=== PATIENT | male | born 1965 | race Caucasian/White ===

== ENCOUNTER 2017-04-07 09:55 | Inpatient (IN) ==
--- NOTE | 2017-04-07 10:51 | Diag Imaging Result Doc PS360 ---
EXAM: XRAY PELVIS W/HIP 2-3VW RT HISTORY: fsll TECHNIQUE: Three views COMPARISON: None. FINDINGS: There is a fracture to the right femoral neck. Femoral head remains in the acetabulum. There is only slight displacement and angulation at the fracture site. No other fracture to the pelvis. IMPRESSION: Right femoral neck fracture. Electronically signed by Celso Daly 04/07/2017 10:49 AM
--- NOTE | 2017-04-07 10:53 | Diag Imaging Result Doc PS360 ---
EXAM: CHEST-1 VIEW HISTORY: HIP FX TECHNIQUE: Semiupright AP COMPARISON: 03/14/2017 FINDINGS: The lungs are well expanded. The heart is not enlarged. The vessels are not distended. There are no infiltrates. No effusion identified. IMPRESSION: Negative exam.. Electronically signed by Celso Daly 04/07/2017 10:50 AM
--- NOTE | 2017-04-07 10:55 | PROVIDER DOCUMENTATION ---
HPI-Musculoskeletal Pain/Inj - GENERAL Chief Complaint: Fall Stated Complaint: FALL, RT HIP PAIN Time Seen by Provider: 04/07/17 10:17 Source: patient - HX OF PRESENT ILLNESS-MUSKULOSKELTAL Nature of Presenting Problem: 52 YO WM presents wtih right hip pain after falling after standing up from a rocking chair today. Brought in by EMS. States doesn't know why he fell, but having some difficulty with low blood pressure lately and was recently placed on new medication by his psychiatric doctor. Feels fine other than his right hip hurting. No LOC, no nausea/vomiting, no pain anywhere else, did not hit his head. Quality of Pain: reports: aching, throbbing Severity in ED: moderate Onset/Duration: just prior to arrival Timing: still present Modifying Factors: improves with: nothing Any recent injury?: Yes Locality of Occurance: Home Similar Symptoms Previously?: No Recently seen or treated by another doctor?: Yes - FALL INJURY Location of Pain/Injury: reports: pelvis, lower extremity Pain Radiation: reports: no radiation Reason for Fall: reports: lightheaded Symptoms prior to fall:: reports: none Loss of Consciousness: no loss of consciousness Injury Associated Symptoms: reports: joint pain, unable to bear weight, trouble walking. denies: arm pain, back/neck pain, chest pain, diaphoresis, dizziness, headaches, muscle aches, nausea, shortness of breath, snap/crack/pop sensation, vomiting - HIP/PELVIS PAIN/INJURY Hip Pain Location: reports: hip (R) Pain Radiation: reports: no radiation Context / Method of Injury: reports: fall Associated Symptoms: denies: loss of bladder control, loss of bowel control, lower back pain, numbness in legs/feet, tingling in legs/feet, weakness in legs/ feet Review of Systems - Adult - REVIEW OF SYSTEMS - ADULT Constitutional: denies: chills, fever Eyes: denies: decreased vision, blurred vision, double vision Ears, Nose, Mouth & Throat: reports: no symptoms reported Cardiovascular: denies: chest pain, palpitations, syncope Respiratory: denies: cough, shortness of breath, wheezing Gastrointestinal: denies: abdominal pain, diarrhea, nausea, vomiting Genitourinary: reports: no symptoms reported Musculoskeletal: reports: bone pain, joint pain. denies: back pain, joint swelling, muscle aches, muscle weakness, neck pain Integumentary: reports: no symptoms reported Neurological: reports: no symptoms reported Past History - Adult - PAST MEDICAL HISTORY-ADULT Review of Records: reports: Nursing Assessment Review, Medications Reviewed Major Childhood Illnesses: reports: denies history Cardiovascular: reports: denies history Respiratory: reports: denies history Gastrointestinal: reports: denies history Obstetrical/Gynecological: reports: denies history Genitourinary: reports: denies history Musculoskeletal: reports: denies history Neurological: reports: denies history Psychiatric: reports: anxiety, depression, psychiatric problems, suicide attempt , schizophrenia Endocrine/Immune: reports: denies history Other Conditions: reports: denies history - PRIOR SURGERIES/PROCEDURES Surgical/Procedure History: reports: other (facial surgery) - IMMUNIZATION STATUS Childhood Immunizations: See Nurse Assessment Flu Vaccine: See Nurse Assessment - FAMILY HISTORY Family History: reviewed, not pertinent Physical Exam-Injury Related - Physical Exam-Injury Related Initial Vital Signs Reviewed: Yes General Appearance: appears well, alert, no apparent distress Eyes: PERRL/EOMI, pink conjunctivae. negative: sclera injected, scleral icterus Head, Ears, Nose, Mouth & Throat: normocephalic/atraumatic, moist mucous membranes Neck: full range of motion, supple, normal inspection Respiratory: lungs clear, normal breath sounds, no respiratory distress, no accessory muscle use. negative: crackles, rales, rhonchi, stridor, wheezing Cardiovascular: normal peripheral pulses, regular rate, rhythm Peripheral Pulses: radial (R): 2+, radial (L): 2+, dorsalis-pedis (R): 2+, dorsalis-pedis (L): 2+ Abdominal Exam: non tender, soft. negative: distended, guarding, rigid, rebound , tenderness Extremity: other (right leg extended with toe pointed toward ceiling, left knee flexed. Right leg does not appear shorter than the left. Pain at the right anterior pelvis/hip. No ecchymosis noted). negative: erythema, inflammation, joint effusion Integumentary: normal color, warm/dry Neurologic: consumer marketing manager II-XII nml as tested, grossly normal Psych/Mental Status: normal mood/affect, normal thought content, normal thought process Progress - PLAN OF CARE/RESULTS Progress/Plan/Lab Results: Laboratory Results - last 24 hr 04/07/17 04/07/17 04/07/17 11:07 11:07 11:07 WBC RBC Hgb Hct MCV MCH MCHC RDW Std Deviation Plt Count MPV Immature Gran % (Auto) Neut % (Auto) Lymph % (Auto) [place] % (Auto) Eos % (Auto) Baso % (Auto) Immature Gran # (Auto) Neut # (Auto) Lymph # (Auto) [place] # (Auto) Eos # (Auto) Baso # (Auto) PTT (Actin FS) 23.1 Sodium Potassium Chloride Carbon Dioxide Anion Gap BUN Creatinine Estimated GFR/1.73 m2 BUN/Creatinine Ratio Glucose Calculated Osmolality Calcium Total Bilirubin AST ALT Alkaline Phosphatase Creatine Kinase 71 Troponin T < 0.010 Total Protein Albumin Globulin Albumin/Globulin Ratio Urine Source Urine Color Urine Turbidity Urine pH Ur Specific [place] Urine Protein Ur Glucose (Stick) Ur Ketones (Stick) Urine Blood Urine Nitrite Urine Bilirubin Urobilinogen Dipstick Urine Leukocytes Urine WBC (Auto) Urine RBC (Auto) U Epithel Cells (Auto) Urine Bacteria (Auto) [place] Blood Type Antibody Screen 04/07/17 04/07/17 04/07/17 11:07 11:07 11:07 WBC 5.45 RBC 3.87 L Hgb 12.8 L Hct 37.8 L MCV 97.7 MCH 33.1 H MCHC 33.9 RDW Std Deviation 14.1 Plt Count 176 MPV 11.9 H Immature Gran % (Auto) 0.0 Neut % (Auto) 74.0 Lymph % (Auto) 14.7 L [place] % (Auto) 10.5 H Eos % (Auto) 0.2 Baso % (Auto) 0.6 Immature Gran # (Auto) 0.00 Neut # (Auto) 4.04 Lymph # (Auto) 0.80 L [place] # (Auto) 0.57 Eos # (Auto) 0.01 Baso # (Auto) 0.03 PTT (Actin FS) Sodium 138 Potassium 4.4 Chloride 100 Carbon Dioxide 25 Anion Gap 13 BUN 9 Creatinine 0.9 Estimated GFR/1.73 m2 > 60 BUN/Creatinine Ratio 10 Glucose 102 Calculated Osmolality 275 Calcium 8.9 Total Bilirubin 0.62 AST 19 ALT 15 Alkaline Phosphatase 55 Creatine Kinase Troponin T Total Protein 6.0 L Albumin 3.9 Globulin 2.1 Albumin/Globulin Ratio 1.9 Urine Source Urine Color Urine Turbidity Urine pH Ur Specific [place] Urine Protein Ur Glucose (Stick) Ur Ketones (Stick) Urine Blood Urine Nitrite Urine Bilirubin Urobilinogen Dipstick Urine Leukocytes Urine WBC (Auto) Urine RBC (Auto) U Epithel Cells (Auto) Urine Bacteria (Auto) [place] Blood Type A NEGATIVE Antibody Screen NEGATIVE 04/07/17 04/07/17 11:07 11:44 WBC RBC Hgb Hct MCV MCH MCHC RDW Std Deviation Plt Count MPV Immature Gran % (Auto) Neut % (Auto) Lymph % (Auto) [place] % (Auto) Eos % (Auto) Baso % (Auto) Immature Gran # (Auto) Neut # (Auto) Lymph # (Auto) [place] # (Auto) Eos # (Auto) Baso # (Auto) PTT (Actin FS) Sodium Potassium Chloride Carbon Dioxide Anion Gap BUN Creatinine Estimated GFR/1.73 m2 BUN/Creatinine Ratio Glucose Calculated Osmolality Calcium Total Bilirubin AST ALT Alkaline Phosphatase Creatine Kinase Troponin T Total Protein Albumin Globulin Albumin/Globulin Ratio Urine Source CLEAN CATCH Urine Color YELLOW Urine Turbidity CLEAR Urine pH 7.0 Ur Specific [place] 1.012 Urine Protein NEGATIVE Ur Glucose (Stick) NEGATIVE Ur Ketones (Stick) NEGATIVE Urine Blood NEGATIVE Urine Nitrite NEGATIVE Urine Bilirubin NEGATIVE Urobilinogen Dipstick NORMAL Urine Leukocytes NEGATIVE Urine WBC (Auto) <10 Urine RBC (Auto) <10 U Epithel Cells (Auto) <10 Urine Bacteria (Auto) NEGATIVE [place] 0.50 L Blood Type Antibody Screen Orders Category Date Time Status Admit - [facility] Routine AdmDCTranf 04/07/17 13:38 Ordered Admit [facility] Routine AdmDCTranf 04/07/17 16:21 Ordered Activity - Up with Assistance ORDERED Care 04/07/17 16:21 Active Intake and Output-Strict ORDERED Care 04/07/17 16:21 Active Nursing- MD Consult Request ROUTINE Care 04/07/17 16:21 Active Saline Loc NOW Care 04/07/17 11:00 Completed Vital Signs Order Q 8-HR ASSESS Care 04/07/17 16:21 Active Z-Document. for Tele Applied ORDERED Care 04/07/17 16:21 Completed Physician/Provider Consults Routine Cons 04/07/17 16:21 Ordered Regular Diet Diet 04/07/17 14:41 Active CHEST-1 VIEW [RAD] Stat Exams 04/07/17 10:38 Completed XRAY PELVIS W/HIP 2-3VW RT [RAD] Stat Exams 04/07/17 10:18 Completed CBC WITH DIFF [HEME] Stat Lab 04/07/17 11:07 Completed CK PROFILE [SP CHEM] Stat Lab 04/07/17 11:07 Completed COMPREHENSIVE METABOLIC PANEL [CHEM] Stat Lab 04/07/17 11:07 Completed LITHIUM [TDM] Stat Lab 04/07/17 11:07 Completed PTT [COAG] Stat Lab 04/07/17 11:07 Completed TROPONIN T Stat Lab 04/07/17 11:07 Completed TYPE & SCREEN [BBK] Stat Lab 04/07/17 11:07 Completed UA NIMS W/REFLEX CULT [URINALYSIS] Stat Lab 04/07/17 11:44 Completed 0.9% Sodium Chloride Inj [Ns] 1,000 ml Med 04/07/17 16:21 Active IV 65 mls/hr ATORVAstatin [Lipitor] Med 04/07/17 21:00 Active 10 mg PO QHS Acetaminophen [Tylenol] Med 04/07/17 16:21 Active 650 mg PO Q6H PRN PRN Benztropine [Cogentin] Med 04/07/17 17:00 Active 2 mg PO TID Clozapine [Clozaril] Med 04/08/17 09:00 Active 100 mg PO DAILY Divalproex [Depakote] Med 04/07/17 21:00 Active 500 mg PO QHS Fludrocortisone [Florinef] Med 04/08/17 09:00 Active 0.1 mg PO DAILY Hydromorphone [Dilaudid] Med 04/07/17 16:21 Active 1 mg IV Q3H PRN PRN [place] Carbonate Med 04/07/17 21:00 Active 300 mg PO BID Loxapine [Loxitane] Med 04/08/17 09:00 Active 10 mg PO DAILY Mirtazapine [Remeron] Med 04/08/17 09:00 Active 15 mg PO DAILY Morphine Med 04/07/17 12:22 Discontinued 4 mg .ROUTE .STK-MED ONE Morphine Med 04/07/17 11:34 Discontinued 4 mg IV NOW ONE Ondansetron [Zofran] Med 04/07/17 11:34 Discontinued 4 mg IV NOW ONE Ondansetron [Zofran] Med 04/07/17 16:21 Active 4 mg IV Q4H PRN PRN Pseudoephedrine [Sudafed] Med 04/07/17 21:00 Active 30 mg PO BID Pseudoephedrine [Sudafed] Med 04/08/17 09:00 Discontinued 30 mg PO DAILY Sertraline [Zoloft] Med 04/08/17 09:00 Active 100 mg PO DAILY Oxygen Device Routine Oth 04/07/17 16:21 Active Telemetry [OM.EQ] Routine Oth 04/07/17 16:21 Active EKG [EKG] Routine Ther 04/08/17 08:00 Ordered EKG [EKG] Stat Ther 04/07/17 10:36 Draft Physical Therapy Eval/Treatment [OM.PT] Routine Ther 04/07/17 16:21 Active Transfer/Admit Order [TRANSFER] Routine Transfer 04/07/17 14:37 Completed Result Diagrams: 04/07/17 11:07 04/07/17 11:07 - REASSESSMENT Reassessment #1 Time Reassessed: 11:02 (Waiting on further labs, but discussed with Dr. Marshall. Pt needs admission for femoral neck fracture. Pt had possible near-syncope/ hypotension. Will call orthopedics and hospitalist when labs are back. ) Reassessment #2 Time Reassessed: 12:24 (Labs back. Ortho called. ) Reassessment #3 Time Reassessed: 12:40 (Discussed with Dr. Marshall. She will go in and see the patient. Informed pt of admission, and that orthopedist will be seeing him when he gets admitted. ) Reassessment #4 Time Reassessed: 13:30 (Dr. Marshall evaluated pt. Agrees with admission. ) - XRAY 1 XRAY: Right XRAY Study: Pelvis, Hip Impression: Abnormal (Right femoral neck fracture) - CONSULTS/PCP/HOSPITALIST Notification #1 *Consult/PCP/Hospitalist*: Dr. Roca, Orthopedics Time Discussed: 12:25 (Admit to hospitalist, will consult on pt) Consult Disposition: Admit #2 Consult: Shayy SHREDDING MACHINE OPERATOR for Dr. Chavez Time Discussed: 12:31 (Will admit and consult to orthopedics) #3 Consult: Dr. Calloway, admitting provider for Dr. Varela Time Discussed: 14:13 (Re[address] head CT for pt, will admit for Dr. Roca to evaluate for hip fracture) Consult Disposition: Admit Departure - Departure Date of Disposition Decision: 04/07/17 Time of Disposition Decision: 12:31 DIAGNOSIS: Femoral neck fracture Qualifiers: Encounter type: initial encounter Fracture type: closed Laterality: right Qualified Code(s): S72.001A - Fracture of unspecified part of neck of right femur, initial encounter for closed fracture Fall Qualifiers: Encounter type: initial encounter Qualified Code(s): W19.XXXA - Unspecified fall, initial encounter Disposition: ADMITTED INPATIENT 09 Certified Medical Emergency: Emergent Condition: Stable - Critical Care Note This patient required my direct & personal management of CC.: No Attestation - Physician/ TANIA Attestation Patient care was provided by Advanced Practice Provider:: Yes Advanced Practice Provider:: Roscoe Velasquez Advanced Practice Provider documentation review:: The Mid-level provider documentation, treatment plan and medical decision making was reviewed by the physician who agrees with all treatment and medical decision making by the MLP. The physician spent face to face time with patient:: No Advanced Practice Provider documentation review:: Supervising physician onsite and consulted in the evaluation and care of this patient. The physician did not have a face to face encounter with the patient.
[2017-04-07 11:16] LABS: MANUAL DIFF NEEDED? NO
[2017-04-07 11:24] LABS: BASO% 0.6 % (0.0-0.8); EOS# 0.01 X1000 (0.0-0.7); EOS% 0.2 % (0.0-10.0); HEMATOCRIT 37.8 % (42.0-52.0); HEMOGLOBIN 12.8 g/dL (14.0-18.0); LYMPH% 14.7 % (20.5-51.1); MCH 33.1 PG (27-31); MCHC 33.9 g/dL (33-37); MCV 97.7 FL (81-99); MONO# 0.57 X1000 (0.11-0.59); MONO% 10.5 % (1.7-9.3); MPV 11.9 FL (7.4-10.4); PLT 176 X1000 (130-400); RBC 3.87 XMIL (4.7-6.1)
[2017-04-07] MEDS ORDERED: ZOFRAN IV ONE (11:34)
[2017-04-07] MEDS ORDERED: MORPHINE IV ONE (11:34)
[2017-04-07 11:46] LABS: AGAP 13; ALBUMIN 3.9 g/dL (3.5-5.0); ALKALINE PHOSPHATASE 55 U/L (32-122); BUN 9 mg/dL (8-22); CALCIUM 8.9 mg/dL (8.8-10.2); CHLORIDE 100 mmol/L (98-107); COSMO 275; GOT 19 U/L (10-34); GPT 15 U/L (10-44); POTASSIUM 4.4 mmol/L (3.5-5.1); SODIUM 138 mmol/L (136-145); TCO2 25 mmol/L (25-35); TOTAL BILIRUBIN 0.62 mg/dL (0.20-1.00)
[2017-04-07 11:57] LABS: URINE CULTURE NEEDED? NO; URINE MICRO REVIEW NEEDED? NO; URINE SOURCE CLEAN CATCH
[2017-04-07 12:14] LABS: BILIRUBIN URINE NEGATIVE (NEGATIVE); BLOOD URINE NEGATIVE (NEGATIVE); COLOR YELLOW; GLUCOSE URINE NEGATIVE (NEGATIVE); LEUKOCYTES URINE NEGATIVE (NEGATIVE); NITRITE URINE NEGATIVE (NEGATIVE); PROTEIN URINE NEGATIVE (NEGATIVE); SP GRAVITY URINE 1.012; TURBIDITY URINE CLEAR (CLEAR); UROBILINOGEN URINE NORMAL (NORMAL)
[2017-04-07 12:16] LABS: UR EPITHELIAL CELLS <10 /HPF (<10); URINE BACTERIA NEGATIVE /HPF; URINE RBC <10 /HPF (<10); URINE WBC <10 /HPF (<10)
[2017-04-07] MEDS ORDERED: MORPHINE ONE (12:22)
--- NOTE | 2017-04-07 12:45 | EKG Report ---
Test Performed on : 04/07/2017 12:31:51 PM Test Reason : CP Blood Pressure : / mmHG Vent. Rate : 061 BPM Atrial Rate : 061 BPM P-R Int : 148 ms QRS Dur : 088 ms QT Int : 448 ms P-R-T Axes : 031 026 062 degrees QTc Int : 450 ms Normal sinus rhythm. Normal ECG When compared with ECG of 14-MAR-2017 11:41, Vent. rate has decreased BY 31 BPM Nonspecific T wave abnormality no longer evident in Inferior leads Unconfirmed Result
--- NOTE | 2017-04-07 13:40 | ED EKG INTERP ---
This chart was entered by Soledad Isaac Scribe, acting as scribe for Jim Marshall MD. EKG Interpretation - EKG Time of EKG reading by physician:: 12:31 EKG Read and Signed by:: Jim Marshall EKG Interpretation (*Must complete 3 of following elements*): Normal Rate: 61 Rhythm: NSR [place]: normal Attestation - Physician/ TANIA Attestation Patient care was provided by Advanced Practice Provider:: No The physician spent face to face time with patient:: Yes Advanced Practice Provider documentation review:: Supervising physician onsite and consulted in the evaluation and care of this patient. The physician did have a face to face encounter with the patient. This chart was documented by the indicated scribe, (Soledad Isaac Scribe) and accurately reflects the services I performed and decisions made by me, Jim Marshall MD, as attested by the provider's signature.
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
[2017-04-07] MEDS ORDERED: ZOFRAN IV PRN (16:21)
[2017-04-07] MEDS ORDERED: TYLENOL PO PRN (16:21)
[2017-04-07] MEDS: DILAUDID IV PRN (16:42)
[2017-04-07] MEDS ORDERED: KEFZOL 1 GM/D5W 1 GM/50 ML IVPB IV ONE (17:19)
[2017-04-07] MEDS: NS 1,000 ML IV SCH (17:30)
[2017-04-07] MEDS: COGENTIN PO SCH (17:35)
--- NOTE | 2017-04-07 18:52 | CONSULTATION ---
DATE OF CONSULTATION: 04/07/2017 PICCOLO MECHANIC: Roland Chavez MD PRIMARY CARE PHYSICIAN: Charlotte Varela MD. HISTORY OF PRESENT ILLNESS: I have been asked to see this very pleasant, 52-year-old male, after he had sustained a fall at the facility he stays at, this morning. He states he got up too quickly out of his recliner. He fell directly and landed on the right hip. He states he has not had any pain in the hip prior to this incident. He states currently his pain is controlled. I examined him in bed 454A. Currently, he denies any chest pain, shortness of breath. No other complaints. PAST MEDICAL HISTORY: Includes psychiatric disorders with bipolar. PAST SURGICAL HISTORY: Plastic surgery to the nose. ALLERGIES: No known drug allergies. MEDICATIONS: Please see list. FAMILY HISTORY: Questionable depression in his family. No cardiovascular disease. SOCIAL HISTORY: Denies any alcohol, tobacco, or illicit drugs. REVIEW OF SYSTEMS: Fourteen-point review of systems negative unless stated otherwise above. PHYSICAL EXAMINATION: General: He is currently alert and oriented x3. He is in no apparent distress. Vital Signs: Temperature 98.5, pulse 68, respirations 18, blood pressure 113/68, O2 saturation 97% on room air. HEENT: His head is normocephalic, atraumatic. Eyes, pupils equal, round, react to light and accommodation. Extraocular muscles intact bilaterally. Ears: No otalgia or otorrhea. Throat is not injected. Neck: Supple. Trachea is midline. Cardiovascular: Regular rate and rhythm. Respiratory: No distress noted. Chest rise equal bilaterally. Abdomen: Soft, nontender. Musculoskeletal: He has got a positive short and externally rotated right lower extremity. He has got pain with internal-external rotation with positive log roll. His compartments are soft. Skin: Warm, dry, intact. X-RAYS: Three views of the right hip demonstrate a displaced femoral neck fracture on the right. IMPRESSION: 1. Right displaced femoral neck fracture. 2. Bipolar disorder. PLAN: Today, I discussed the patient's length regarding his hip fracture. I recommended operative fixation for the right hip. I discussed with him a right hip hemiarthroplasty. I went over the risks, benefits, complications, indications associated with surgical procedure. I went over the risk of infection, DVT pulmonary embolism, neurovascular injury, risks of continued pain, need for further surgery and complications that do arise. He agrees and wished to proceed. We will get him scheduled in the a.m. for operative fixation. We will keep him n.p.o. after midnight. I will obtain a surgical permit. I will continue to follow him throughout his hospital stay as well. Thank you for allowing me to participate in the care of this patient. cc: DO Romeo Munroe MD Allen J. Schmidt, MD
[2017-04-07] MEDS: LITHIUM CARBONATE PO SCH (19:59)
[2017-04-07] MEDS: LIPITOR PO SCH (19:59)
[2017-04-07] MEDS: DEPAKOTE PO SCH (19:59)
[2017-04-07] MEDS: SUDAFED PO SCH (20:00)
[2017-04-08] MEDS: DILAUDID IV PRN (01:51)
[2017-04-08] MEDS ORDERED: NEOSPORIN G.U. IRRIGANT ONE ×2 (07:14→09:10)
[2017-04-08] MEDS ORDERED: KEFZOL 1 GM/D5W 1 GM/50 ML IVPB ONE (07:53)
[2017-04-08] MEDS ORDERED: XYLOCAINE-MPF 2% ONE (08:22)
[2017-04-08] MEDS ORDERED: DIPRIVAN 1% ONE (08:23)
[2017-04-08] MEDS ORDERED: VERSED ONE (08:23)
[2017-04-08] MEDS ORDERED: FENTANYL ONE (08:23)
[2017-04-08] MEDS ORDERED: ZOFRAN ONE (08:54)
[2017-04-08] MEDS ORDERED: DECADRON ONE (08:54)
[2017-04-08] MEDS ORDERED: SUDAFED PO SCH (09:00)
[2017-04-08] MEDS ORDERED: OFIRMEV 1000 MG/ISOTONIC SOLN 1,000 MG/100 ML BOTTLE ONE (09:33)
[2017-04-08] MEDS: DILAUDID ONE ×3 (10:23→12:56)
--- NOTE | 2017-04-08 10:42 | Diag Imaging Result Doc PS360 ---
EXAM: XRAY HIP UNILATERAL RT HISTORY: Post hip TECHNIQUE: Right hip two views portable at 1025 COMMENT: There is a bipolar prosthesis. There appears to be satisfactory alignment. IMPRESSION: Postsurgical changes. Electronically signed by Leonides Monge 04/08/2017 10:40 AM
[2017-04-08] MEDS ORDERED: HALDOL IV PRN (11:02)
[2017-04-08] MEDS ORDERED: MILK OF MAGNESIA PO PRN (11:02)
[2017-04-08] MEDS ORDERED: ZOFRAN IV PRN (11:02)
[2017-04-08] MEDS: CLOZARIL PO SCH (12:24)
[2017-04-08] MEDS: TYLENOL PO SCH ×2 (12:25→20:27)
[2017-04-08] MEDS: COGENTIN PO SCH ×3 (12:25→19:03)
[2017-04-08] MEDS: LOXITANE PO SCH (12:26)
[2017-04-08] MEDS: FLORINEF PO SCH (12:27)
[2017-04-08] MEDS: LITHIUM CARBONATE PO SCH ×2 (12:27→20:27)
[2017-04-08] MEDS: ZOLOFT PO SCH (12:27)
[2017-04-08] MEDS: REMERON PO SCH (12:27)
[2017-04-08] MEDS: SUDAFED PO SCH ×2 (12:28→20:28)
[2017-04-08] MEDS: NS 1,000 ML IV SCH (12:56)
[2017-04-08] MEDS: KEFZOL 1 GM/D5W 1 GM/50 ML IVPB IV SCH ×2 (15:00→23:19)
[2017-04-08] MEDS: OXY IR PO PRN ×2 (15:00→18:56)
--- NOTE | 2017-04-08 15:19 | OPERATIVE NOTE ---
PROCEDURE DATE: 04/08/2017 PREOPERATIVE DIAGNOSIS: Displaced right femoral neck fracture. POSTOP DIAGNOSIS: Displaced right femoral neck fracture. PROCEDURE: Right hip hemiarthroplasty bipolar. SURGEON: Victoriano Roca D.O. CLAY PIGEON SETTER: None. ANESTHESIA: General endotracheal. ESTIMATED BLOOD LOSS: 100 mL. FLUIDS: Per anesthesia. DRAINS: None. ANTIBIOTICS: 1 g Ancef IV preop. SPECIMEN TISSUES REMOVED: None. COMPLICATIONS: None . IMPLANTS: 1. DePuy femoral head 28 mm +8.5, 07/06 taper. 2. DePuy Tri Lock femoral stem size 7 high offset. 3. DePuy self-centering bipolar head 28 mm inner diameter, 53 mm outer diameter. DISPOSITION: Stable recovery room. INDICATIONS FOR PROCEDURE: This very pleasant 52-year-old male was seen and evaluated yesterday after he had been transported to the emergency department from the care facility he stays at secondary to him getting up too quickly from a chair falling. He was examined and found to have a displaced right femoral neck fracture. I discussed with him operative fixation of the right hip with hemiarthroplasty. I went over the risks, benefits, complications, indications associated with surgical procedure and he agrees and wished to proceed. Written consent has been signed and placed in the chart. Right lower extremity has been marked in preoperative area. DETAIL PROCEDURE: Patient was taken back to the operative suite, placed on operating table in a supine position. He was given the benefit of a general anesthetic. All bony prominences were padded well. He was then placed in lateral decubitus position. Axillary roll was placed. Right lower extremity then sterilely prepped and draped in usual sterile fashion. Time out was performed identifying correct patient, procedure, site to be performed. All in attendance were in agreement. Preoperative antibiotics were given and confirmed. Ioban was used circumferentially wrap the open area over the right hip. Standard anterolateral skin incision was made the skin and subcutaneous tissue with a 20 blade scalpel. Electrocautery dissection was then used to dissect down to the deep subcutaneous layer. An incision to the iliotibial band proximally and distally was made along the skin incision. A Charnley retractor was placed. Identifying gluteus medius and minimus insertion over the greater trochanter. This was incised through with electrocautery peeling back the gluteus medius and minimus. This allowed me to expose the capsule. I did a T- capsulotomy. There is noted be significant fracture hematoma. The broken femoral neck head was then removed and measured on the back table. I then turned my attention back to the femoral neck. Freehand cut was made on the femoral neck to properly align the femoral neck cut for placement of the implant. I then trialed the acetabular shell. A 53 mm shell had excellent fit and fill. I turned my attention back to the femur. Then initially using a cookie cutter then a entry canal finder. I then broached up to a size 7. It had excellent fit and fill. A trial reduction was performed after I placed the high offset neck and a +8.5 mm neck length. The hip was reduced and taken through full range of motion. It was stable throughout all planes. All trial components were then removed. The hip was then thoroughly irrigated with pulsatile lavage normal saline. I then impacted the final femoral stem. The trunnion was cleaned and the femoral head was impacted onto the trunnion. The hip was then reduced. I then reapproximated the capsular layer with [id number] interrupted 0 Vicryl. The gluteus medius, minimus were then reattached back to its insertion site with [id number] interosseous #2 FiberWire. This was then oversewn with a #1 Vicryl. I then reapproximated iliotibial band with a running locking #1 Vicryl. Deep subcutaneous layer was closed with 2-0 Vicryl. [place] on the skin. Needle and sponge counts correct x2. Sterile dressings were applied in form of Xeroform, 4 x 4, ABDs and tape. The patient transferred to PACU in a stable condition. DISPOSITION: Patient will be admitted back to medical-surgical unit. He will start his DVT prophylaxis Lovenox 40 mg daily as well as SCDs. I am okay weightbearing as tolerated with physical therapy. Will continue to follow through his hospital stay. cc: DO Charlotte Munroe MD
[2017-04-08] MEDS: COLACE PO SCH (20:27)
[2017-04-08] MEDS: LIPITOR PO SCH (20:27)
[2017-04-08] MEDS: DEPAKOTE PO SCH (20:27)
[2017-04-09] MEDS: TYLENOL PO SCH ×3 (03:18→21:07)
[2017-04-09] MEDS: NS 1,000 ML IV SCH ×5 (03:19→21:07)
[2017-04-09] MEDS: MORPHINE IV PRN ×3 (03:19→21:18)
--- NOTE | 2017-04-09 04:54 | PROGRESS NOTE ---
DATE: 04/08/2017 SUBJECTIVE: The patient without any complaints. He is still somnolent from having hip replacement surgery. PHYSICAL EXAMINATION: Vital Signs: Temperature 98, pulse 78, respiratory rate 18-20, blood pressure 118/72. General: Patient is awake, but somnolent. He is easily arousable. HEENT: Normocephalic, atraumatic. Neck: Supple. No JVD. Cardiovascular: Regular rate. Chest clear. No wheezing. Abdomen: Soft, nondistended. Extremities: No edema. Neurologic: No focal changes. ASSESSMENT: 1. Right femoral neck fracture, status post open reduction, internal fixation. 2. Bipolar, type I. 3. Hypercholesterolemia. PLAN: We will continue to watch patient in the hospital. Continue physical therapy. Continue his home medications. Further orders as needed. cc: MD Charlotte Shore MD
[2017-04-09] MEDS: LOVENOX SUBQ SCH (05:52)
[2017-04-09 06:13] LABS: HEMATOCRIT 30.5 % (42.0-52.0); HEMOGLOBIN 10.1 g/dL (14.0-18.0)
[2017-04-09] MEDS: OXY IR PO PRN ×2 (06:39→08:05)
[2017-04-09 06:45] LABS: AGAP 9; BUN 8 mg/dL (8-22); CALCIUM 7.6 mg/dL (8.8-10.2); CHLORIDE 102 mmol/L (98-107); COSMO 272; POTASSIUM 3.8 mmol/L (3.5-5.1); SODIUM 137 mmol/L (136-145); TCO2 26 mmol/L (25-35)
[2017-04-09] MEDS: PERIDEX MT SCH ×2 (08:01→21:07)
[2017-04-09] MEDS: LITHIUM CARBONATE PO SCH ×2 (08:01→21:08)
[2017-04-09] MEDS: COGENTIN PO SCH ×3 (08:01→17:22)
[2017-04-09] MEDS: ZOLOFT PO SCH (08:01)
[2017-04-09] MEDS: FERROUS SULFATE PO SCH (08:02)
[2017-04-09] MEDS: LOXITANE PO SCH (08:02)
[2017-04-09] MEDS: KEFZOL 1 GM/D5W 1 GM/50 ML IVPB IV SCH (08:02)
[2017-04-09] MEDS: FLORINEF PO SCH (08:02)
[2017-04-09] MEDS: REMERON PO SCH (08:02)
[2017-04-09] MEDS: SUDAFED PO SCH ×2 (08:03→21:08)
--- NOTE | 2017-04-09 09:33 | PROGRESS NOTE ---
DATE: 04/09/2017 SUBJECTIVE: Patient is postop day #1, right hip hemiarthroplasty. He is currently resting and examined in bed 470. He states he has no chest pain or shortness of breath. He states his pain is controlled. He has no acute complaints. OBJECTIVE: Vital Signs: Temperature 98.9 degrees, pulse 89, respirations 18, blood pressure 102/61, MAP is 69. O2 saturation is 97% on room air. Extremities: Examination to his right hip, his skin incision is well approximated. No drainage, erythema, or sign of infection. His compartments are soft. Negative Homans bilaterally. Grossly neurovascularly intact distally. Laboratory Studies: Hemoglobin 10.1, hematocrit is 30.5. ASSESSMENT: Postoperative day #1, right hip hemiarthroplasty. PLAN: Today, I discussed with him we will continue with any progression with his physical therapy. I am okay with him weightbearing as tolerated. Continue his DVT prophylaxis and pain control. cc: DO Charlotte Munroe MD
[2017-04-09] MEDS: CLOZARIL PO SCH (13:42)
--- NOTE | 2017-04-09 14:00 | PROGRESS NOTE ---
DATE: 04/09/2017 SUBJECTIVE: The patient denies any current chest pain. Does state he has a mild cough. Denies any real shortness of breath. Denies current fevers. He has a nonproductive cough. Does state that he is short of breath at times. Denies any GI or issues. Denies diarrhea, constipation, melena, hematochezia. States that his pain is moderately well controlled currently. OBJECTIVE: Vital Signs: Current temperature 98, T-max 101 degrees early a.m., pulse 89, respiratory rate 18, BP 102/61. General: Patient is awake, alert. He is currently in no respiratory distress. HEENT: Normocephalic, atraumatic. JOSE. Neck: Supple. No JVD. Cardiovascular: Regular rate. No murmurs. Chest: Clear. Nonlabored. Abdomen: Soft, nondistended, nontender. Extremities: He is noted to move all extremities well with the exception of the right lower extremity due to recent surgery. He has no edema. Neurologic: No focal changes. He is awake, alert, oriented x3. Skin: No rashes. LABORATORY STUDIES: Hemoglobin and hematocrit are 10 and 32. CMP otherwise normal. ASSESSMENT: 1. Fever. Certainly concerned that he may be developing some atelectasis. Discussed with patient and instructed him on how to use and when to use incentive spirometry. We will continue to follow. Given normal lung exam and normal labs this morning, we will not start on antibiotics at this point. 2. Right femoral neck fracture status post internal fixation. 3. Bipolar depression type 1. Continue his current medications. 4. Hypercholesterolemia. PLAN: Patient will continue with physical therapy. We will continue to follow his fever. Further orders as needed. cc: MD Charlotte Shore MD
[2017-04-09] MEDS: NICODERM PATCH TD SCH (17:22)
[2017-04-09] MEDS: LIPITOR PO SCH (21:07)
[2017-04-09] MEDS: DEPAKOTE PO SCH (21:07)
[2017-04-09] MEDS: COLACE PO SCH (21:08)
[2017-04-10] MEDS: TYLENOL PO SCH ×4 (05:00→19:52)
[2017-04-10] MEDS: NS 1,000 ML IV SCH ×2 (05:00→12:21)
[2017-04-10] MEDS: LOVENOX SUBQ SCH (05:47)
[2017-04-10 06:17] LABS: HEMATOCRIT 30.3 % (42.0-52.0); HEMOGLOBIN 9.9 g/dL (14.0-18.0)
--- NOTE | 2017-04-10 06:23 | EKG Report ---
Test Performed on : 04/08/2017 06:18:01 AM Test Reason : chest pain Blood Pressure : / mmHG Vent. Rate : 070 BPM Atrial Rate : 070 BPM P-R Int : 150 ms QRS Dur : 086 ms QT Int : 382 ms P-R-T Axes : 035 019 050 degrees QTc Int : 412 ms Normal sinus rhythm. Normal ECG When compared with ECG of 07-APR-2017 12:31, (Unconfirmed) No significant change was found Confirmed by Car Valdes MD ([id number]) on 04/12/2017 5:45:22 PM
[2017-04-10] MEDS: ZOLOFT PO SCH (08:10)
[2017-04-10] MEDS: PERIDEX MT SCH ×2 (08:10→20:21)
[2017-04-10] MEDS: FERROUS SULFATE PO SCH (08:10)
[2017-04-10] MEDS: COGENTIN PO SCH ×3 (08:10→17:52)
[2017-04-10] MEDS: LITHIUM CARBONATE PO SCH ×2 (08:10→20:21)
[2017-04-10] MEDS: FLORINEF PO SCH (08:11)
[2017-04-10] MEDS: NICODERM PATCH TD SCH (08:11)
[2017-04-10] MEDS: REMERON PO SCH (08:11)
[2017-04-10] MEDS: LOXITANE PO SCH (08:11)
[2017-04-10] MEDS: CLOZARIL PO SCH (11:21)
[2017-04-10] MEDS: COLACE PO SCH (20:21)
[2017-04-10] MEDS: DEPAKOTE PO SCH (20:21)
[2017-04-10] MEDS: LIPITOR PO SCH (20:22)
[2017-04-10] MEDS: OXY IR PO PRN (20:24)
[2017-04-11] MEDS: NS 1,000 ML IV SCH ×4 (02:00→21:56)
[2017-04-11] MEDS: LOVENOX SUBQ SCH ×2 (04:56→05:26)
[2017-04-11] MEDS: OXY IR PO PRN ×3 (04:56→21:56)
[2017-04-11] MEDS: TYLENOL PO SCH ×3 (04:56→18:40)
[2017-04-11 06:13] LABS: HEMATOCRIT 26.8 % (42.0-52.0); HEMOGLOBIN 8.8 g/dL (14.0-18.0)
[2017-04-11] MEDS: REMERON PO SCH (08:03)
[2017-04-11] MEDS: NICODERM PATCH TD SCH (08:03)
[2017-04-11] MEDS: ZOLOFT PO SCH (08:03)
[2017-04-11] MEDS: LITHIUM CARBONATE PO SCH ×2 (08:03→21:57)
[2017-04-11] MEDS: LOXITANE PO SCH (08:03)
[2017-04-11] MEDS: FERROUS SULFATE PO SCH (08:03)
[2017-04-11] MEDS: COGENTIN PO SCH ×3 (08:03→18:39)
[2017-04-11] MEDS: FLORINEF PO SCH (08:03)
[2017-04-11] MEDS: PERIDEX MT SCH ×2 (08:04→21:56)
[2017-04-11] MEDS ORDERED: PATIENT'S OWN MED PO SCH (09:00)
[2017-04-11] MEDS: PATIENT'S OWN MED PO SCH (10:46)
[2017-04-11] MEDS: LIPITOR PO SCH (21:57)
[2017-04-11] MEDS: DEPAKOTE PO SCH (21:57)
[2017-04-11] MEDS: COLACE PO SCH (21:57)
[2017-04-12 05:33] LABS: MANUAL DIFF NEEDED? NO
[2017-04-12 06:01] LABS: AGAP 11; BUN 10 mg/dL (8-22); CALCIUM 8.1 mg/dL (8.8-10.2); CHLORIDE 106 mmol/L (98-107); COSMO 282; POTASSIUM 3.5 mmol/L (3.5-5.1); SODIUM 142 mmol/L (136-145); TCO2 25 mmol/L (25-35)
[2017-04-12] MEDS: OXY IR PO PRN ×2 (06:24→21:09)
[2017-04-12] MEDS: LOVENOX SUBQ SCH (06:24)
[2017-04-12] MEDS: TYLENOL PO SCH ×3 (06:25→21:10)
[2017-04-12 07:05] LABS: BASO% 0.6 % (0.0-0.8); EOS# 0.01 X1000 (0.0-0.7); EOS% 0.2 % (0.0-10.0); HEMATOCRIT 25.6 % (42.0-52.0); HEMOGLOBIN 8.3 g/dL (14.0-18.0); LYMPH# 1.28 X1000 (1.2-3.4); LYMPH% 26.1 % (20.5-51.1); MCH 32.2 PG (27-31); MCHC 32.4 g/dL (33-37); MCV 99.2 FL (81-99); MONO# 0.88 X1000 (0.11-0.59); MONO% 17.9 % (1.7-9.3); MPV 11.2 FL (7.4-10.4); NEUT% 55.2 % (42.2-75.2); PLT 166 X1000 (130-400); RBC 2.58 XMIL (4.7-6.1)
--- NOTE | 2017-04-12 08:31 | Diag Imaging Result Doc PS360 ---
EXAM: CHEST-2 VIEWS INDICATION: Fever TECHNIQUE: 2 views COMPARISON: 04/07/2017 FINDINGS: There is mild opacity at the left lung base suggesting subsegmental atelectasis versus mild infiltrate. The lungs are grossly clear, otherwise. There is no discrete pleural fluid collection or pneumothorax. The cardiomediastinal silhouette and central vasculature are grossly unremarkable. IMPRESSION: Mild atelectasis versus infiltrate at the left lung base. Electronically signed by Francisco Gregg 04/12/2017 8:29 AM
[2017-04-12] MEDS: PERIDEX MT SCH ×2 (09:33→21:08)
[2017-04-12] MEDS: ZOLOFT PO SCH (09:34)
[2017-04-12] MEDS: LOXITANE PO SCH (09:34)
[2017-04-12] MEDS: PATIENT'S OWN MED PO SCH (09:34)
[2017-04-12] MEDS: FERROUS SULFATE PO SCH (09:35)
[2017-04-12] MEDS: FLORINEF PO SCH (09:35)
[2017-04-12] MEDS: LITHIUM CARBONATE PO SCH ×2 (09:35→21:09)
[2017-04-12] MEDS: NICODERM PATCH TD SCH (09:35)
[2017-04-12] MEDS: COGENTIN PO SCH ×3 (09:35→17:52)
[2017-04-12] MEDS: REMERON PO SCH (09:35)
[2017-04-12 14:28] LABS: URINE MICRO REVIEW NEEDED? NO; URINE SOURCE VOIDED
[2017-04-12 14:40] LABS: BILIRUBIN URINE NEGATIVE (NEGATIVE); BLOOD URINE NEGATIVE (NEGATIVE); COLOR YELLOW; GLUCOSE URINE NEGATIVE (NEGATIVE); LEUKOCYTES URINE NEGATIVE (NEGATIVE); NITRITE URINE NEGATIVE (NEGATIVE); PROTEIN URINE 30 mg/dL (NEGATIVE); SP GRAVITY URINE 1.032; TURBIDITY URINE CLEAR (CLEAR); UROBILINOGEN URINE 12 mg/dL (NORMAL)
[2017-04-12 14:42] LABS: UR EPITHELIAL CELLS <10 /HPF (<10); URINE BACTERIA NEGATIVE /HPF; URINE RBC <10 /HPF (<10); URINE WBC <10 /HPF (<10)
[2017-04-12] MEDS: LIPITOR PO SCH (21:09)
[2017-04-12] MEDS: COLACE PO SCH (21:09)
[2017-04-12] MEDS: DEPAKOTE PO SCH (21:09)
[2017-04-13] MEDS: OXY IR PO PRN ×3 (05:42→21:37)
[2017-04-13] MEDS: LOVENOX SUBQ SCH (05:43)
[2017-04-13] MEDS: TYLENOL PO SCH ×3 (05:43→21:38)
[2017-04-13 06:06] LABS: BASO% 0.8 % (0.0-0.8); EOS# 0.01 X1000 (0.0-0.7); EOS% 0.2 % (0.0-10.0); HEMATOCRIT 26.1 % (42.0-52.0); HEMOGLOBIN 8.6 g/dL (14.0-18.0); LYMPH# 1.63 X1000 (1.2-3.4); MANUAL DIFF NEEDED? NO; MCH 32.2 PG (27-31); MCV 97.8 FL (81-99); MONO# 0.98 X1000 (0.11-0.59); MONO% 19.8 % (1.7-9.3); MPV 11.2 FL (7.4-10.4); NEUT% 46.2 % (42.2-75.2); PLT 200 X1000 (130-400); RBC 2.67 XMIL (4.7-6.1)
[2017-04-13] MEDS: NS 1,000 ML IV SCH (06:38)
[2017-04-13] MEDS ORDERED: LEVAQUIN 750 MG/D5W 750 MG/150 ML IVPB IV SCH (07:00)
[2017-04-13] MEDS: LOXITANE PO SCH (09:20)
[2017-04-13] MEDS: COGENTIN PO SCH ×3 (09:20→17:50)
[2017-04-13] MEDS: LITHIUM CARBONATE PO SCH ×2 (09:20→21:37)
[2017-04-13] MEDS: REMERON PO SCH (09:20)
[2017-04-13] MEDS: NICODERM PATCH TD SCH (09:20)
[2017-04-13] MEDS: ZOLOFT PO SCH (09:21)
[2017-04-13] MEDS: PERIDEX MT SCH ×2 (09:21→21:38)
[2017-04-13] MEDS: FERROUS SULFATE PO SCH (09:21)
[2017-04-13] MEDS: FLORINEF PO SCH (09:21)
[2017-04-13] MEDS: ZOSYN 3.375 GM in NS 50 ML IV SCH ×3 (14:22→23:25)
--- NOTE | 2017-04-13 18:42 | CONSULTATION ---
DATE OF CONSULTATION: 04/13/2017 CONCLUSION: The patient has been having fever and chills. I think this is secondary to a left lower lobe pneumonia, which may have been due to aspiration which occurred when the patient fell and fractured his hip. RECOMMENDATIONS: I have discontinued Levaquin and started the patient on Zosyn. DISCUSSION: The patient tells me that he fell and fractured his hip. He was taken to the hospital. He has undergone a right hip hemiarthroplasty bipolar, secondary to a displaced right femoral neck fracture. Postoperatively, the patient has had a low-grade fever. The last one was 100.2. He denies having chest pain. He says he has not been coughing. A chest x-ray shows possible left lower lobe infiltrate versus atelectasis. LABS: The patient's CBC shows a white count of 4940, hemoglobin 8.6 and platelet count 200,000. Patient's creatinine on the 09 of April was 0.8 with a GFR of 60. The patient's urinalysis showed no white cells and no bacteria. REVIEW OF SYSTEMS: Eyes and ears: Patient wears glasses, but his hearing is normal. Neck: No stiffness. Respiratory: No cough or shortness of breath. Cardiac: No chest pain or palpitations. GI: No nausea, vomiting, or diarrhea. Genitourinary: No dysuria or flank pain. Neurologic: No seizures or loss of strength. Endocrine: The patient does not have diabetes or thyroid disease. Hematologic: He does not have a history of anemia or having a bleeding tendency. However, in the hospital here his hemoglobin is 8.6. PAST MEDICAL HISTORY: Previous hospitalizations and operations: He has had plastic surgery on his nose. Medical Diseases: Positive for schizophrenia. Negative for diabetes mellitus and hypertension. Hyperlipidemia. Infectious Disease History: Negative for pneumonia and UTI. FAMILY HISTORY: Positive for schizophrenia and diabetes. SOCIAL HISTORY: [place] He stopped smoking cigarettes 2 months ago. He does not drink alcoholic beverages or abuse drugs. He does not have any pets where he lives. ALLERGIES: His chart lists no known allergies. HOME MEDICATIONS: Include the following: SudoGest, mirtazapine, Depakote, benztropine, Lipitor, lithium, Florinef, clozapine and sertraline. PHYSICAL EXAMINATION: Vital Signs: The temperature earlier was 100.2, now it is 98.6. Pulse 62, respirations 16, blood pressure 116/57. General: This is an ill-appearing, middle-aged male. He is in no acute distress. HEENT: He is wearing glasses. He can see near objects. He can hear my spoken words. There were no white patches on his tongue. Neck: No meningismus. Thorax: No increased AP diameter of the chest. Lungs: Clear to auscultation. Cardiovascular: Heart rate was regular. The patient does not have any leg edema. Peripheral pulses: Are palpable. Abdomen: Soft and not tender. Extremities: The patient's right hip incision is intact. There is no erythema or drainage coming from it. Neurologic: Patient is awake. He can move his extremities. There is no tremor. His sensation is intact to touch. His memory regarding his medical history seems to be decreased, especially when I was talking to him about illnesses that the patient has had and that family members have had. Thank you for the consult. cc: MD Charlotte Cole MD
[2017-04-13] MEDS: COLACE PO SCH (21:37)
[2017-04-13] MEDS: LIPITOR PO SCH (21:37)
[2017-04-13] MEDS: MORPHINE IV PRN (22:30)
[2017-04-13] MEDS: DEPAKOTE PO SCH (22:30)
[2017-04-14] MEDS: MORPHINE IV PRN ×5 (02:36→23:48)
[2017-04-14] MEDS: TYLENOL PO SCH ×4 (05:21→23:17)
[2017-04-14] MEDS: LOVENOX SUBQ SCH (05:21)
[2017-04-14] MEDS: ZOSYN 3.375 GM in NS 50 ML IV SCH ×4 (05:22→23:48)
[2017-04-14] MEDS: COGENTIN PO SCH ×3 (08:28→16:45)
[2017-04-14] MEDS: FERROUS SULFATE PO SCH (08:28)
[2017-04-14] MEDS: REMERON PO SCH (08:28)
[2017-04-14] MEDS: ZOLOFT PO SCH (08:28)
[2017-04-14] MEDS: LITHIUM CARBONATE PO SCH ×2 (08:28→20:07)
[2017-04-14] MEDS: NICODERM PATCH TD SCH (08:28)
[2017-04-14] MEDS: FLORINEF PO SCH (08:28)
[2017-04-14] MEDS: PERIDEX MT SCH ×2 (08:28→20:07)
[2017-04-14] MEDS: LOXITANE PO SCH (08:28)
[2017-04-14] MEDS: NS 1,000 ML IV SCH ×3 (08:29→10:43)
[2017-04-14] MEDS: OXY IR PO PRN (09:58)
--- NOTE | 2017-04-14 19:15 | PROGRESS NOTE ---
DATE: 04/14/2017 PRESENT ILLNESS: The patient has a left lower lobe pneumonia. He is status post surgery after he fractured his hip. MEDICATIONS: The patient is on IV Zosyn. PHYSICAL EXAMINATION: Vital Signs: Temperature is 98.5 degrees, pulse 80, respirations 18, blood pressure 97/62. General: This is an ill-appearing middle-aged male. He was up walking when I came in the room. He looked somewhat weak and shaky but overall I think it is good that he is up this much so soon after surgery. Lungs: Clear to auscultation. Cardiovascular: Heart rate at times was regular and at other times seemed to be irregular. Extremities: The right hip incision is intact. There is no erythema or bleeding. LAB AND X-RAY: There is no new x-ray. There is no new lab for today either. ASSESSMENT AND PLAN: The patient has pneumonia. I plan to continue Zosyn. I have ordered CBC and BMP the beginning of the week and Dr. Varela has ordered a chest x-ray to be done over the weekend. COMORBIDITY: He fell and fractured his hip. cc: MD Charlotte Cole MD
[2017-04-14] MEDS: LIPITOR PO SCH (20:07)
[2017-04-14] MEDS: COLACE PO SCH (20:07)
[2017-04-14] MEDS: DEPAKOTE PO SCH (20:08)
[2017-04-15] MEDS: DILAUDID IV PRN ×2 (04:46→18:23)
[2017-04-15] MEDS: LOVENOX SUBQ SCH (05:28)
[2017-04-15] MEDS: TYLENOL PO SCH ×3 (05:28→21:31)
[2017-04-15] MEDS: ZOSYN 3.375 GM in NS 50 ML IV SCH ×4 (05:28→18:27)
--- NOTE | 2017-04-15 11:03 | Diag Imaging Result Doc PS360 ---
EXAM: CHEST-PORTABLE HISTORY: pneumonia TECHNIQUE: Portable upright AP COMPARISON: 04/12/2017 FINDINGS: Mild increased density in the left base similar to the prior study. The right lung remains clear. The heart is not enlarged. The vessels are not distended. No pleural effusions identified. IMPRESSION: Persistent small infiltrate in the left base. No interval improvement. Electronically signed by Celso Daly 04/15/2017 11:01 AM
[2017-04-15] MEDS: NICODERM PATCH TD SCH (11:22)
[2017-04-15] MEDS: LOXITANE PO SCH (11:23)
[2017-04-15] MEDS: FERROUS SULFATE PO SCH (11:23)
[2017-04-15] MEDS: COGENTIN PO SCH ×3 (11:23→16:16)
[2017-04-15] MEDS: LITHIUM CARBONATE PO SCH ×2 (11:23→21:31)
[2017-04-15] MEDS: FLORINEF PO SCH (11:23)
[2017-04-15] MEDS: ZOLOFT PO SCH (11:23)
[2017-04-15] MEDS: REMERON PO SCH (11:23)
[2017-04-15] MEDS: PERIDEX MT SCH ×2 (11:24→21:32)
[2017-04-15] MEDS: MORPHINE IV PRN ×2 (14:15→21:41)
[2017-04-15] MEDS: DEPAKOTE PO SCH (21:31)
[2017-04-15] MEDS: LIPITOR PO SCH (21:31)
[2017-04-15] MEDS: COLACE PO SCH (21:31)
[2017-04-16] MEDS: ZOSYN 3.375 GM in NS 50 ML IV SCH ×4 (00:49→17:52)
[2017-04-16] MEDS: MORPHINE IV PRN ×3 (01:15→16:15)
[2017-04-16] MEDS: XARELTO PO SCH (05:25)
[2017-04-16] MEDS: TYLENOL PO SCH ×4 (05:25→22:14)
[2017-04-16 06:07] LABS: AGAP 10; BASO% 0.6 % (0.0-0.8); BUN 13 mg/dL (8-22); CALCIUM 8.1 mg/dL (8.8-10.2); CHLORIDE 107 mmol/L (98-107); COSMO 286; HEMATOCRIT 26.7 % (42.0-52.0); HEMOGLOBIN 8.5 g/dL (14.0-18.0); IMM GRAN# 0.02 X1000 (0.0-0.04); IMM GRAN% 0.4 % (0.0-0.5); LYMPH# 1.57 X1000 (1.2-3.4); LYMPH% 31.7 % (20.5-51.1); MANUAL DIFF NEEDED? YES; MCHC 31.8 g/dL (33-37); MCV 100.4 FL (81-99); MONO# 1.01 X1000 (0.11-0.59); MONO% 20.4 % (1.7-9.3); MPV 10.9 FL (7.4-10.4); NEUT% 46.9 % (42.2-75.2); PLT 310 X1000 (130-400); POTASSIUM 3.8 mmol/L (3.5-5.1); RBC 2.66 XMIL (4.7-6.1); SODIUM 144 mmol/L (136-145); TCO2 27 mmol/L (25-35)
[2017-04-16] MEDS: DILAUDID IV PRN ×2 (07:51→23:30)
[2017-04-16] MEDS: ZOLOFT PO SCH (08:00)
[2017-04-16] MEDS: FLORINEF PO SCH (08:00)
[2017-04-16] MEDS: NICODERM PATCH TD SCH (08:00)
[2017-04-16] MEDS: LOXITANE PO SCH (08:00)
[2017-04-16] MEDS: COGENTIN PO SCH ×3 (08:00→17:52)
[2017-04-16] MEDS: FERROUS SULFATE PO SCH (08:00)
[2017-04-16] MEDS: REMERON PO SCH (08:00)
[2017-04-16] MEDS: PERIDEX MT SCH ×2 (08:00→22:16)
[2017-04-16] MEDS: LITHIUM CARBONATE PO SCH ×2 (08:00→22:14)
[2017-04-16] MEDS: OXY IR PO PRN (13:00)
[2017-04-16] MEDS: COLACE PO SCH (22:13)
[2017-04-16] MEDS: LIPITOR PO SCH (22:14)
[2017-04-16] MEDS: DEPAKOTE PO SCH (22:16)
[2017-04-17] MEDS: ZOSYN 3.375 GM in NS 50 ML IV SCH ×3 (01:04→12:31)
[2017-04-17] MEDS: TYLENOL PO SCH ×2 (06:19→17:03)
[2017-04-17] MEDS: XARELTO PO SCH (06:19)
--- NOTE | 2017-04-17 07:25 | DISCHARGE SUMMARY ---
ADMISSION DATE: 04/07/2017 DISCHARGE DATE: 04/17/2017 DISCHARGE DIAGNOSES: 1. Left hip hemiarthroplasty after having a fall and sustaining a left hip intertrochanteric fracture. 2. Left lower lung pneumonia. 3. Bipolar disorder. 4. Anemia. 5. Dyslipidemia. HOSPITAL COURSE: Mr. Garcia is a 52-year-old gentleman, who had a fall at the shelter, where he was staying and sustained left hip intertrochanteric fracture on April 07, 2017, after which he was brought into the emergency room for further evaluation and care. He was found to have left hip intertrochanteric fracture after which, a consultation with Dr. Roca from the orthopedic service was obtained. The patient underwent left hip hemiarthroplasty and was doing well, but did have some low-grade fever along with leukocytosis after which we obtained a chest x- ray that showed left lower lobe pneumonia. Consultation with Dr. Bharathi Waldron was obtained from the infectious disease service, who was actively involved in the care of this patient during this hospital admission. We treated him with IV Zosyn for his pneumonia, since aspiration was suspected at the time of fall. The patient has done well, and his condition has improved and therefore, we are going to let him be transferred to rehab. He has been doing physical therapy and has been able to be full weightbearing on his left lower extremity. DISCHARGE MEDICATIONS: 1. Percocet 10 mg orally every 6 hours as needed for pain, 30 tablets with no refills. 2. Ceftin 500 mg orally twice daily for 10 days. 3. Clindamycin 300 mg orally 3 times a day for 10 days. 4. Xarelto 10 mg orally once daily for 30 days. 5. Sertraline 100 mg orally once daily. 6. Clozapine 100 mg orally once daily. 7. Pseudoephedrine 30 mg orally twice daily. 8. Mirtazapine 50 mg orally once daily. 9. Doxepin 10 mg orally once daily. 10. Benztropine 2 mg orally 3 times a day. 11. Depakote 500 mg orally once daily at bedtime. 12. [employer] carbonate 300 mg orally twice daily. 13. Florinef 0.1 mg orally once daily. 14. Ferrous sulfate 325 mg orally once daily. 15. Docusate sodium 200 mg orally once daily. 16. Atorvastatin 10 mg orally once daily at bedtime. FOLLOWUP: He will follow with Dr. Roca in approximately 2 weeks at which time his arthritic condition be assessed. He will also follow up with me at the office in approximately 4-6 weeks. CONDITION: Stable. DISPOSITION: Rehabilitation facility. TIME SPENT: A total of more than 30 minutes was spent taking care of this patient during the discharge process. cc: Charlotte Varela MD
[2017-04-17] MEDS: LOXITANE PO SCH (08:35)
[2017-04-17] MEDS: PERIDEX MT SCH (08:35)
[2017-04-17] MEDS: NICODERM PATCH TD SCH (08:35)
[2017-04-17] MEDS: ZOLOFT PO SCH (08:36)
[2017-04-17] MEDS: FERROUS SULFATE PO SCH (08:37)
[2017-04-17] MEDS: LITHIUM CARBONATE PO SCH (08:37)
[2017-04-17] MEDS: FLORINEF PO SCH (08:38)
[2017-04-17] MEDS: REMERON PO SCH (08:38)
[2017-04-17] MEDS: DILAUDID IV PRN (08:47)
[2017-04-17] MEDS: COGENTIN PO SCH ×2 (08:47→14:29)
[2017-04-17] MEDS: OXY IR PO PRN (12:32)
[2017-04-17 13:08] VITALS: BP 117/78
== END 2017-04-17 15:38 ==
LOC: SUPCPDRO → ED 09:55 → SUATTDRO 16:16 → 4N 16:16
PROVIDERS: ADMIT Internal Medicine; ATTEND Internal Medicine